=== PATIENT | male | born 1985 | race Two or more races ===

== ENCOUNTER 2025-02-10 13:49 | Inpatient (IN) | payer OTHER ==
[~2025-02-10] VITALS: Ht 182.9 cm; Wt 154.2 kg
[2025-02-10] MEDS ORDERED: ACID REDUCER20 M1 PO (14:44)
[2025-02-10] MEDS ORDERED: COZAAR50 MG PO (14:44)
--- NOTE | 2025-02-10 14:44 | NUR ---
PACIENTE ALERTA Y ORIENTADO X3. REFIERE VENIR POR DIARREAS DESDE HACE UN[place]. SE ESTIMAN VITALES Y SE UBICA.
[2025-02-10] MEDS ORDERED: ONDANSETRON HCL 2 MG/ML VIAL IV ONE (16:15)
[2025-02-10] MEDS ORDERED: CIPROFLOXACIN IN 5 % DEXTROSE 400 MG/200 ML PIGGYBAG IV ONE ×2 (16:15→16:38)
[2025-02-10] MEDS ORDERED: PANTOPRAZOLE SODIUM 40 MG/VIAL VIAL IV ONE (16:15)
[2025-02-10] MEDS ORDERED: MORPHINE SULFATE 4 MG/ML CARTRIDGE IV ONE (16:15)
[2025-02-10] MEDS ORDERED: 0.9 % SODIUM CHLORIDE 1,000 ML IV ONE (16:15)
[2025-02-10] MEDS ORDERED: ONDANSETRON HCL 2 MG/ML VIAL ONE (16:38)
[2025-02-10 17:02] LABS: BASO % 0.3 % (0.1-1.2); EOS # 0.00 (0.04-0.54); EOS % 0.0 % (0.7-7.0); LYMPH # 1.45 (1.18-3.74); LYMPH % 8.1 % (19.3-53.1); MEAN PLATELET VOLUME 9.40 fl (9.4-12.4); MONO # 1.09 (0.24-0.82); MONO % 6.1 % (4.7-12.5); NEUT # 15.17 (1.56-6.13); NEUT % 85.1 % (34.0-71.1); RED CELL DISTRIBUTION WIDTH 15.4 % (11.6-14.4)
--- NOTE | 2025-02-10 17:33 | NUR ---
SE EDUCA A PACIENTE SOBRE TRATAMIENTO MEDICO EL CUAL REFIERE ENTENDER, SE REALIZA ORDENES MEDICAS KAMRAN ORDEN MEDICA Y BAJO MEDIDAS ASEPTICAS.
[2025-02-10 17:42] LABS: INR 1.13
[2025-02-10 17:45] LABS: ALT/SGPT 32.0 U/L (12-78); AST/SGOT 13.0 U/L (15-37); BILIRUBIN TOTAL 0.61 mg/dL (0.3-1.2); BUN CREA RATIO 8.0 (7.0-25.0); CREATININE SERUM 1.34 mg/dL (0.70-1.30); GFR 59.34; GLOBULINA 4.5 G/DL (2.4-3.5); GLUCOSE FASTING 105.0 mg/dL (65-100); OSMOLALITY SERUM 279.0 MOSM/KG (275-295)
[2025-02-10 18:10] LABS: URINE APPEARANCE Clear; URINE BILIRRUBIN Negative (NEGATIVE); URINE BLOOD Moderate; URINE COLOR Yellow; URINE GLUCOSE Negative (NEGATIVE); URINE KETONE Negative (NEGATIVE); URINE LEUKOCYTE Negative; URINE NITRATE Negative; URINE PROTEIN 30 (NEGATIVE); URINE UROBILINOGEN 0.2 E.U./dl
[2025-02-10 18:12] LABS: URINE BACTERIA 22.7 uL (0.0-1933); URINE EPITHELIAL CELLS 9.2 uL (0.0-38.8); URINE RBC 19.7 uL (0.0-20.8); URINE WBC 7.6 uL (0.0-23.2)
[2025-02-10 18:15] LABS: URINE CAST 0.14 uL (0.0-1.40)
[2025-02-10 18:23] LABS: FECAL LEUKOCYTES POSITIVE (NEGATIVE); ob POSITIVE (NEGATIVE)
[2025-02-10] MEDS ORDERED: PANTOPRAZOLE SODIUM 40 MG in 0.9 % SODIUM CHLORIDE 8 ML IV PUSH SCH (21:00)
[2025-02-10] MEDS ORDERED: MORPHINE SULFATE 2 MG/ML SYRINGE IV PRN (21:00)
[2025-02-10] MEDS ORDERED: RINGERS SOLUTION,LACTATED 1,000 ML IV SCH (21:00)
[2025-02-10] MEDS ORDERED: CIPROFLOXACIN IN 5 % DEXTROSE 200 ML IV SCH (21:00)
[2025-02-10] MEDS ORDERED: ACETAMINOPHEN 325 MG TABLET PO PRN (21:00)
[2025-02-10] MEDS ORDERED: LOSARTAN POTASSIUM 50 MG TABLET PO SCH (21:02)
[2025-02-10] MEDS ORDERED: ONDANSETRON HCL 4 MG in 0.9 % SODIUM CHLORIDE 50 ML IV PRN (21:15)
[2025-02-10] MEDS ORDERED: ENALAPRILAT DIHYDRATE 1.25 MG/ML VIAL IV PRN (21:15)
[2025-02-10 23:24] VITALS: BP 158/78; O2SAT 99
[2025-02-11 05:40] VITALS: BP 152/84; O2SAT 95
[2025-02-11 07:26] LABS: ALT/SGPT 35.0 U/L (12-78); AST/SGOT 21.0 U/L (15-37); BILIRUBIN TOTAL 0.58 mg/dL (0.3-1.2); BUN CREA RATIO 10.0 (7.0-25.0); CREATININE SERUM 1.3 mg/dL (0.70-1.30); GFR 61.46; GLOBULINA 4.3 G/DL (2.4-3.5); GLUCOSE FASTING 112.0 mg/dL (65-100); OSMOLALITY SERUM 280.0 MOSM/KG (275-295)
[2025-02-11 08:42] VITALS: BP 166/108
[2025-02-11 18:59] VITALS: BP 114/70
[2025-02-12 03:37] VITALS: BP 118/70; O2SAT 97
[2025-02-12 08:31] VITALS: BP 139/85
[2025-02-12 19:32] VITALS: BP 121/83; O2SAT 100
[2025-02-13 02:46] VITALS: BP 118/74; O2SAT 96
[2025-02-13 06:28] LABS: BASO % 0.6 % (0.1-1.2); EOS # 0.43 (0.04-0.54); EOS % 5.0 % (0.7-7.0); LYMPH # 2.17 (1.18-3.74); LYMPH % 25.1 % (19.3-53.1); MEAN PLATELET VOLUME 10.00 fl (9.4-12.4); MONO # 1.00 (0.24-0.82); MONO % 11.6 % (4.7-12.5); NEUT # 4.89 (1.56-6.13); NEUT % 56.5 % (34.0-71.1); RED CELL DISTRIBUTION WIDTH 14.6 % (11.6-14.4)
[2025-02-13 07:02] LABS: BUN CREA RATIO 12.0 (7.0-25.0); CREATININE SERUM 1.09 mg/dL (0.70-1.30); GFR 75.31; GLUCOSE FASTING 91.0 mg/dL (65-100); OSMOLALITY SERUM 283.0 MOSM/KG (275-295)
[2025-02-13 09:32] VITALS: BP 130/84; O2SAT 97
[2025-02-14] MEDS ORDERED: PANTOPRAZOLE SODIUM 40 MG TABLET.DR PO SCH (09:00)
== END 2025-02-13 14:50 | DRG 392 ==
LOC: ER 13:49 → MEDJ 21:07 → SEC-K 21:07 → MEDJ 02-11 03:59
PROVIDERS: General Practice; Internal Medicine; ADMIT Internal Medicine; ATTEND Internal Medicine
PROC: BW21ZZZ Computerized Tomography (CT Scan) of Abdomen and Pelvis (ICD-10-PCS; principal; 2025-02-10)
DX: K52.9 Noninfective gastroenteritis and colitis, unspecified (principal)